=== PATIENT | male | born 1990 | race Caucasian/White ===

== ENCOUNTER 2022-01-07 20:16 | Emergency (ER) | payer OTHER ==
[2022-01-07 20:43] VITALS: BP 133/54; PULSE 92; RESP 18; TEMP 98; BMI 25.7
[2022-01-07] MEDS ORDERED: DIPHTH,PERTUSS(ACELL),TET 0.5 ML DISP.SYRIN IM ONE ×2 (22:08→22:11)
== END 2022-01-07 22:15 | disposition home or self-care (01) ==
LOC: JER 20:16
PROC: 0HQ1XZZ Repair Face Skin, External Approach (ICD-10-PCS; principal; 2022-01-07)
DX: S01.112A Laceration without foreign body of left eyelid and periocular area, initial encounter (principal); Y04.8XXA Assault by other bodily force, initial encounter
CPT/HCPCS: 90715; 99282-25

== ENCOUNTER 2022-01-13 08:05 | Emergency (ER) | payer OTHER ==
[2022-01-13 08:15] VITALS: BP 115/65; PULSE 65; RESP 18; TEMP 98.2; BMI 23.6
== END 2022-01-13 09:15 | disposition home or self-care (01) ==
LOC: JER 08:05
DX: Z48.02 Encounter for removal of sutures (principal)
CPT/HCPCS: 99281-25